=== PATIENT | female | born 1960 | race Caucasian/White ===

== ENCOUNTER 2017-02-04 18:40 | Emergency (ER) | payer OTHER, SELFPAY | END 2017-02-05 01:08 | disposition short-term general hospital (02) | PROVIDERS: Emergency Provider Emergency Medicine; Family Provider Internal Medicine Adolescent Medicine; Visit Provider Emergency Medicine | DX: F31.2 Bipolar disorder, current episode manic severe with psychotic features (principal); S16.1XXA Strain of muscle, fascia and tendon at neck level, initial encounter; S70.02XA Contusion of left hip, initial encounter; S46.912A Strain of unspecified muscle, fascia and tendon at shoulder and upper arm level, left arm, initial encounter; S39.012A Strain of muscle, fascia and tendon of lower back, initial encounter; Z79.899 Other long term (current) drug therapy; F41.8 Other specified anxiety disorders; W01.0XXA Fall on same level from slipping, tripping and stumbling without subsequent striking against object, initial encounter; Y92.019 Unspecified place in single-family (private) house as the place of occurrence of the external cause | CPT/HCPCS: 71010; 72100; 72125; 73030; 73502; 80053; 80305; 81001; 82550; 82553; 84439; 84443; 84484; 85025; 93005; 93041; 96372; 99285 ==

== ENCOUNTER → 2017-03-20 16:31 | Outpatient (CLI) | payer OTHER, SELFPAY ==
[2017-03-20 16:54] LABS: Basophils # 0.1 K/mm3 (0-0.2); Basophils % 0.7 % (0.1-2.0); Eosinophils # 0.2 K/mm3 (0.0-0.4); Eosinophils % 2.7 % (0.1-12.0); Hematocrit 41.1 % (37.0-47.0); Hemoglobin 13.4 g/dL (12.2-16.2); Lymphocytes # 3.3 K/mm3 (0.7-4.5); Lymphocytes % 38.2 K/mm3 (10-50); Mean Corpuscular HGB Conc 32.7 g/dL (31.8-35.4); Mean Corpuscular Hemoglobin 29.5 pg (27.0-31.2); Mean Corpuscular Volume 90.3 fl (81-99); Mean Platelet Volume 9.2 fl (7.4-10.4); Monocytes # 0.5 K/mm3 (0.1-1.0); Monocytes % 5.6 % (1.7-9.3); Neutrophils # 4.6 K/mm3 (1.8-7.8); Neutrophils % 52.8 % (37.0-80.0); Platelet Count 229 K/mm3 (142-424); Red Blood Count 4.55 M/mm3 (4.20-5.40); Red Cell Distribution Width 13.1 % (11.5-17.5); White Blood Count 8.7 K/mm3 (4.8-10.8)
[2017-03-20 18:21] LABS: Alanine Aminotransferase 22 U/L (12-78); Albumin/Globulin Ratio 1.3 (1.1-1.8); Alkaline Phosphatase 78 U/L (46-116); Anion Gap 4.8 mEq/L (5-15); Aspartate Amino Transferase 16 U/L (15-37); Blood Urea Nitrogen 23 mg/dL (7-18); Carbon Dioxide 26 mmol/L (21.0-32.0); Chloride 103 mmol/L (98-107); Chol/HDL Ratio 3.7 (1-3.5); Cholesterol 220 mg/dL (140-200); Creatinine,Serum 0.83 mg/dL (0.55-1.02); Estimated Glomerular Filt Rate 71 ml/min (>60); GFR (African American) 85 ML/MIN (>60); Globulin 3.1 gm/dl (1.3-3.2); Glucose 95 mg/dL (74-106); HDL Cholesterol 60 mg/dL (29-89); LDL Cholesterol 144 mg/dL (0-130); Potassium 3.8 mmoL/L (3.5-5.1); Sodium 130 mmol/L (136-145); Thyroid Stimulating Hormone 3.34 uIU/ml (0.358-3.740); Total Protein,Serum 7.1 gm/dL (6.4-8.2); Triglycerides 81 mg/dL (30-200); VLDL Cholesterol 16 mg/dL (0-40)
== END ==
PROVIDERS: PCP Internal Medicine Adolescent Medicine; Visit Provider Internal Medicine Adolescent Medicine
DX: R60.9 Edema, unspecified (principal); Z00.00 Encounter for general adult medical examination without abnormal findings
CPT/HCPCS: 36415; 80053; 80061; 84443; 85025

== ENCOUNTER → 2020-09-30 18:43 | Outpatient (CLI) | payer OTHER, SELFPAY ==
[2020-09-30 19:15] LABS: Basophils % 0.5 % (0.1-2.0); Eosinophils # 0.1 K/mm3 (0.0-0.4); Eosinophils % 1.4 % (0.1-12.0); Hematocrit 40.8 % (37.0-47.0); Hemoglobin 13.4 g/dL (12.2-16.2); Lymphocytes # 2.3 K/mm3 (0.7-4.5); Lymphocytes % 32.9 % (10-50); Mean Corpuscular HGB Conc 32.9 g/dL (31.8-35.4); Mean Corpuscular Hemoglobin 29.8 pg (27.0-31.2); Mean Corpuscular Volume 90.4 fl (81-99); Mean Platelet Volume 10.2 fl (7.4-10.4); Monocytes # 0.4 K/mm3 (0.1-1.0); Monocytes % 5.8 % (1.7-9.3); Neutrophils # 4.1 K/mm3 (1.8-7.8); Neutrophils % 59.4 % (37.0-80.0); Platelet Count 257 K/mm3 (142-424); Red Blood Count 4.52 M/mm3 (4.20-5.40); Red Cell Distribution Width 13.7 % (11.5-17.5)
[2020-09-30 19:40] LABS: Chloride 109 mmol/L (98-107); Sodium 142 mmol/L (136-145)
[2020-09-30 19:43] LABS: Alanine Aminotransferase 55 U/L (12-78); Albumin/Globulin Ratio 1.5 (1.1-1.8); Alkaline Phosphatase 112 U/L (38-126); Aspartate Amino Transferase 66 U/L (14-36); Bilirubin,Total 0.5 mg/dl (0.2-1.3); Blood Urea Nitrogen 10 mg/dl (7-17); Carbon Dioxide 28 mmol/L (22.0-30.0); Estimated Glomerular Filt Rate 85 ml/min (>60); GFR (African American) 103 ML/MIN (>60); Globulin 2.6 g/dL (1.3-3.2); Total Protein,Serum 6.6 g/dl (6.3-8.2)
[2020-09-30 19:44] LABS: Calcium 8.8 mg/dl (8.4-10.2); Chol/HDL Ratio 4.4 (1-3.5); Cholesterol 189 mg/dl (140-200); Glucose 99 mg/dl (74-100); HDL Cholesterol 43 mg/dl (40-60); Triglycerides 101 mg/dl (30-150); VLDL Cholesterol 20 mg/dL (0-40)
[2020-09-30 19:55] LABS: Direct LDL Cholesterol 116.16 mg/dL (100-129)
[2020-09-30 21:49] LABS: 25-OH Vitamin D, Total 41.1 ng/mL (30-100)
== END ==
PROVIDERS: Visit Provider Nurse Practitioner Family
DX: Z00.00 Encounter for general adult medical examination without abnormal findings (principal); M85.80 Other specified disorders of bone density and structure, unspecified site
CPT/HCPCS: 80053; 80061; 82306; 85025

== ENCOUNTER 2020-10-25 15:07 | Emergency (ER) | payer OTHER, SELFPAY ==
[2020-10-25 15:56] VITALS: BP 142/88; PULSE 57; RESP 18; TEMP 36.7; O2SAT 98; BMI 22.8
--- NOTE | 2020-10-25 16:07 | HMH.EDUTC ---
[facility] [place] Disposition Clinical Impression: Cellulitis of left elbow Disposition: Home, Self-Care Condition on Discharge: Good Instructions: DI for Cellulitis -- Adult Additional Instructions: Keep elevated. Follow up with Marcela/Dr Manzo Prescriptions: Sulfamethoxazole/Trimethoprim [Bactrim DS tablet] 1 each PO BID 10 Days #20 tab Transmission Status: Pending to [facility] # methylPREDNISolone [Medrol 4mg tab] 4 mg PO DIRECTED #21 tab Transmission Status: Pending to [facility] # Referrals: Omar Manzo MD [Primary Care Provider] - Time of Disposition: 16:22 Medical Decision Making - Terry Inquiry Pt receiving controlled substance: No Vital Signs: 10/25/20 15:56 Temperature 98.1 F Temperature Source Oral Pulse Rate [Left] 57 L Respiratory Rate 18 Blood Pressure [Right Arm] 142/88 H Blood Pressure Mean [Right Arm] 106 02 Sat by Pulse Oximetry 98 [facility] [place] HPI - General Stated complaint: possible boil on L elbow Time Seen by Provider: 10/25/20 16:08 Mode of Arrival: Ambulatory Source of Information: Patient Limitations: No Limitations Description of Symptoms (Recalled from Triage Doc. by RN): pt c/o L arm and elbow pain and swelling. HEENT Symptoms (Recalled from RN notes): No Resp Symptoms (Recalled from RN notes): No Skin Symptoms (Recalled from RN notes): No MS Symptoms (Recalled from RN notes): Yes (L arm pain) Functional Status (Recalled from RN notes): na - History of Present Illness Provider Complaint: Patient c/o left elbow pain. States that she has been on vacation. Was eating dinner 4-5 days ago, noticed a slight stinging sensation to her elbow, and when she looked in the mirror it had a small red spot. She doesn't know if she was bitten or what. Today she woke up and her left elbow was red, swollen and her entire left arm is aching. Motrin hasn't helped. Swelling has gone down a bit. No fever. Onset (ago): day(s) (5) Location: left, upper extremity Relieving factors: none Exacerbating factors: none Associated symptoms: denies other symptoms Treatments prior to arrival: NSAID - Related Data Previous Rx's Medication Instructions Recorded Sulfamethoxazole/Trimethoprim 1 each PO BID 10 Days #20 tab 10/25/20 [Bactrim DS tablet] methylPREDNISolone [Medrol 4mg 4 mg PO DIRECTED #21 tab 10/25/20 tab] - Worker's Comp Is this a Worker's Comp case?: No [facility] History - Hepatitis A Screen Drug use history?: No High risk sexual behaviors?: No History of sexually transmitted infection?: No Currently employed?: No Childcare worker?: No Do you have indoor plumbing?: Yes Do you have electricity?: Yes Attestation statement:: This patient has been screened for Hepatitis A risk factors. I have reviewed the patient's past medical history: Yes ROS Obtained: Yes All systems reviewed & no additional complaints - Musculoskeletal Musculoskeletal: Reports as per HPI, Reports joint pain, Reports joint swelling Physical Exam - General General appearance: alert, in no apparent distress - Head Head exam: atraumatic, normocephalic - Eye Eye exam: Present: PERRL - ENT ENT exam: Present: normal oropharynx - Neck Neck exam: Present: normal inspection - Chest Chest inspection: Present: normal inspection, symmetric chest wall rise - Respiratory Respiratory exam: Present: normal lung sounds bilaterally. Absent: respiratory distress - Cardiovascular Cardiovascular exam: Present: regular rate, normal rhythm - Expanded Upper Extremity Exam Left Elbow exam: Present: tenderness, swelling, erythema, effusion - Neurological Exam Neurological exam: Present: alert, oriented X3 - Psychiatric Psychiatric exam: Present: normal affect, normal mood - Skin Skin exam: Present: warm, dry
[2020-10-25 16:44] VITALS: BP 142/88; PULSE 57; RESP 19; TEMP 36.7
== END 2020-10-25 16:45 | disposition home or self-care (01) ==
PROVIDERS: Emergency Provider Physician Assistant; PCP Internal Medicine Adolescent Medicine
DX: L03.114 Cellulitis of left upper limb (principal)
CPT/HCPCS: 99202; G0463

== ENCOUNTER → 2020-11-04 08:09 | Outpatient (CLI) | payer OTHER, SELFPAY ==
--- NOTE | 2020-11-04 | US_ITS ---
PROCEDURE: US BREAST LT COMPLETE CLINICAL INDICATION: Cellulitis COMPARISON: US BL US BREAST-LT COMPLETE W/AXILLA from 06/23/2014 MG MM DIG SC MAMM UNILAT RT CAD from 11/04/2020 FINDINGS: General survey performed of the left breast as the patient could not tolerate a mammogram. 3 mm hypoechoic area at 12 o'clock and may represent a small cyst. No solid lesions apparent. Small nodes are present in the axilla. IMPRESSION: 3 mm cyst at 12 o'clock otherwise negative. BI-RADS category 0 incomplete. Recommend patient have the left mammogram when tolerable. Dictated by: Smith Farah MD 11/10/2020 08:37 Smith Farah MD in [place] 11/10/2020 08:37
--- NOTE | 2020-11-04 08:16 | XR_ITS ---
PROCEDURE: XR DEXA AXIAL SKELETON CLINICAL HISTORY: POST MENOPAUSAL COMPARISON: CR,DX BONE3 BONE DENSITOMETRY(HIP:LT SPINE from 03/24/2016 FINDINGS: The right hip BMD is 0.636 with a T-score of -1.9. The left hip BMD is 0.67 with a T-score of -1.5. The lumbar spine BMD is 0.892 with a T-score of -1.4. Previously the lowest density is in the left femoral neck with T-score of -1.3 IMPRESSION: This patient is considered osteopenic according to the World Health Organization criteria. Bone density is between 10 and 25 percent below young normal. Fracture risk is moderate. Treatment is advised. Based on these results a follow-up exam is recommended in 2 year. Dictated by: Smith Farah MD 11/04/2020 12:08 Smith Farah MD in [place] 11/04/2020 12:08
--- NOTE | 2020-11-04 08:17 | MM_ITS ---
PROCEDURE: MM DIG SC MAMM UNILAT RT CAD Digital Breast Tomosynthesis Included CLINICAL INDICATION: SCREENING COMPARISON: MG DMDB DIG MAMM-DX ROSENDO from 05/13/2013 MG DMSB DIG MAMM-SCREEN ROSENDO from 06/23/2014 MG DMSB DIG MAMM-SCREEN ROSENDO from 11/23/2015 TECHNIQUE: Standard CC and MLO images and 3D Tomosynthesis was obtained. R2 CAD reviewed. FINDINGS: Right-side only performed. Patient has cellulitis in the left breast. Technologist advise patient to perhaps weight and do both sides at the same time however patient desired to have the right breast performed today. The right breast is heterogeneously dense which may obscure small masses. No suspicious appearing mass, malignant-appearing microcalcification, architectural distortion, or skin thickening. No significant change IMPRESSION: No change with no evidence of malignancy BI-RAD Category: 1 Negative FOLLOW-UP: Suggest patient have the left screening mammogram as soon as possible. Annual follow-up suggested of the right breast. (A letter has been sent to the patient regarding results of the study.) Dictated by: Smith Farah MD 11/06/2020 09:34 Smith Farah MD in [place] 11/06/2020 09:34
== END ==
PROVIDERS: PCP Internal Medicine Adolescent Medicine; Visit Provider Nurse Practitioner Family
DX: Z12.31 Encounter for screening mammogram for malignant neoplasm of breast (principal); Z13.820 Encounter for screening for osteoporosis; Z78.0 Asymptomatic menopausal state; N60.02 Solitary cyst of left breast; N64.4 Mastodynia
CPT/HCPCS: 76641; 77063; 77067; 77080

== ENCOUNTER → 2020-12-28 07:35 | Outpatient (CLI) | payer OTHER, SELFPAY ==
--- NOTE | 2020-12-28 07:38 | CT_ITS ---
PROCEDURE: CT LUNG SCREENING CLINICAL INDICATION: H/O NICOTINE DEPENDENCE COMPARISON: No exams were available for comparison TECHNIQUE: The exam was performed on a GE Light Speed [address] scanner using 2.90 mGy CTDI. A low dose helical CT CHEST was performed on a multi-detector scanner. All CT scans at the facility use one or more dose reduction, viz: automated exposure control, ma/kV adjustment per patient size (including targeted exams where dose is matched to indication, i.e. head), or iterative reconstruction technique. The LDCT was performed in a facility that meets the criteria for the screening program. Data regarding this exam was submitted to ACR which is an approved registry. The order for this exam indicates that it came as a result of a lung cancer screening counseling shard decision-making visit that included all the elements required of such a visit including smoking cessation. The radiologist interpreting this exam meets the CMS criteria for the LDCT lung cancer screening program. The exam is reported using the Lung-RADS classification scale and reported to the ACR registry. NOTE: This study was performed for the specific purposes of lung cancer screening and is not an alternative to diagnostic chest CT. RADIATION DOSE: CTDI vol(CT dose Index-volume) = 2.90mG DLP (Dose Length Product) = 108.64 mGcm FINDINGS: COPD changes with scattered areas of scarring. 4 mm nodule left apex anteriorly. Calcified nodule left upper lobe anterior. 3 mm nodule right upper lobe subpleural region. 2 mm nodule right subpleural laterally. No suspicious nodules. Surgical clips in the left breast. Incompletely imaged 4 cm cystic lesion of the left kidney OTHER FINDINGS: No other pertinent findings evident. IMPRESSION: Lung-RADS Category 2 Benign Appearance or Behavior Follow-up: Continue annual screening with LDCT in 12 months Suggest ultrasound of the left kidney to confirm cystic nature of the incompletely imaged cystic appearing lesion of the left kidney Dictated by: Smith Farah MD 01/02/2021 07:40 Smith Farah MD in [place] 01/02/2021 07:40
--- NOTE | 2020-12-28 08:30 | MM_ITS ---
PROCEDURE INFORMATION: Exam: MG Bilateral Screening 3D Mammography Exam date and time: 12/28/2020 8:30 AM Age: 60 years old Clinical indication: Encounter for screening mammogram for malignant neoplasm of breast TECHNIQUE: Imaging protocol: Bilateral screening tomosynthesis and 2D mammography including computer-aided detection (CAD) when performed. COMPARISON: 1. MG DMSB DIG MAMM-SCREEN ROSENDO 11/23/2015 4:42 PM 2. MG DMSB DIG MAMM-SCREEN ROSENDO 06/23/2014 1:16 PM FINDINGS: MAMMOGRAPHY: Breast composition: The breast tissue is composed of scattered areas of fibroglandular density. Mass: None. Architectural distortion: No significant postoperative distortion in the left breast Calcifications: No suspicious calcifications. Asymmetric density: None. Skin thickening: None. Axillary adenopathy: None. IMPRESSION: No mammographic evidence of malignancy. Annual bilateral screening is recommended unless otherwise clinically indicated. ASSESSMENT: BI-RADS Category 1: Negative
[2020-12-28 10:36] LABS: Basophils # 0.1 K/mm3 (0-0.2); Basophils % 1.1 % (0.1-2.0); Eosinophils # 0.1 K/mm3 (0.0-0.4); Eosinophils % 1.8 % (0.1-12.0); Hematocrit 40.9 % (37.0-47.0); Hemoglobin 13.7 g/dL (12.2-16.2); Lymphocytes # 2.6 K/mm3 (0.7-4.5); Lymphocytes % 39.6 % (10-50); Mean Corpuscular HGB Conc 33.6 g/dL (31.8-35.4); Mean Corpuscular Hemoglobin 30.9 pg (27.0-31.2); Mean Platelet Volume 8.9 fl (7.4-10.4); Monocytes # 0.3 K/mm3 (0.1-1.0); Monocytes % 4.4 % (1.7-9.3); Neutrophils # 3.5 K/mm3 (1.8-7.8); Platelet Count 312 K/mm3 (142-424); Red Blood Count 4.45 M/mm3 (4.20-5.40); Red Cell Distribution Width 13.3 % (11.5-17.5); White Blood Count 6.6 K/mm3 (4.8-10.8)
[2020-12-28 11:40] LABS: Alanine Aminotransferase 17 U/L (12-78); Albumin Level 4.2 g/dl (3.5-5.0); Albumin/Globulin Ratio 1.6 (1.1-1.8); Alkaline Phosphatase 80 U/L (38-126); Anion Gap 10.4 mEq/L (5-15); Aspartate Amino Transferase 28 U/L (14-36); Bilirubin,Total 0.7 mg/dl (0.2-1.3); Blood Urea Nitrogen 13 mg/dl (7-17); Calcium 9.4 mg/dl (8.4-10.2); Carbon Dioxide 30 mmol/L (22.0-30.0); Chloride 104 mmol/L (98-107); Estimated Glomerular Filt Rate 101 ml/min (>60); GFR (African American) 123 ML/MIN (>60); Globulin 2.6 g/dL (1.3-3.2); Glucose 94 mg/dl (74-100); Potassium 4.4 mmoL/L (3.5-5.1); Sodium 140 mmol/L (136-145); Total Protein,Serum 6.8 g/dl (6.3-8.2)
[2020-12-28 11:53] LABS: 25-OH Vitamin D, Total 50.1 ng/mL (30-100)
== END ==
PROVIDERS: PCP Internal Medicine Adolescent Medicine; Visit Provider Nurse Practitioner Family
DX: Z87.891 Personal history of nicotine dependence (principal); Z12.2 Encounter for screening for malignant neoplasm of respiratory organs; Z12.31 Encounter for screening mammogram for malignant neoplasm of breast; R79.89 Other specified abnormal findings of blood chemistry; M85.89 Other specified disorders of bone density and structure, multiple sites
CPT/HCPCS: 36415; 71271; 77063; 77067; 80053; 82306; 85025

== ENCOUNTER → 2021-01-22 14:03 | Outpatient (CLI) | payer OTHER, SELFPAY ==
--- NOTE | 2021-01-22 14:05 | US_ITS ---
PROCEDURE: US KIDNEY CLINICAL INDICATION: ABN FINDINGS ON IMAGING TEST The COMPARISON: CT CT LUNG SCREENING from 12/28/2020 FINDINGS: The right kidney is [id number]. No hydronephrosis, cortical thinning, or solid renal mass or perinephric fluid collection is evident. 6 mm cyst in the upper pole of the right kidney The left kidney is [id number]. No hydronephrosis, cortical thinning, or solid renal mass or perinephric fluid collection is evident. 5 cm benign-appearing cyst in the upper pole of the left kidney corresponding to the CT abnormality of 12/28/2020. IMPRESSION: 5 cm benign-appearing left renal cyst and 6 mm benign-appearing right renal cyst Dictated by: Smith Farah MD 01/22/2021 16:40 Smith Farah MD in [place] 01/22/2021 16:40
== END ==
PROVIDERS: PCP Internal Medicine Adolescent Medicine; Visit Provider Nurse Practitioner Family
DX: R93.89 Abnormal findings on diagnostic imaging of other specified body structures (principal)
CPT/HCPCS: 76770

== ENCOUNTER 2021-03-03 09:05 | Emergency (ER) | payer OTHER, SELFPAY ==
--- NOTE | 2021-03-03 09:17 | XR_ITS ---
FINAL REPORT CLINICAL HISTORY: fall, pain and swelling FINDINGS: 3 views of the right hand were obtained. There are mild degenerative changes. There is chronic erosion of the tip of the 2nd distal phalanx. There is a probable nondisplaced fracture of the proximal aspect of the 4th metacarpal. There is dorsal hand soft tissue swelling. IMPRESSION: Probable nondisplaced fracture of the proximal 4th metacarpal. Recommend follow-up radiographs. Reviewed, Interpreted and Dictated by Chano Rendon III, MD Transcribed by Anand Elder Authenticated by Chano Rendon III, MD on 03/03/2021 10:22:10 AM [facility]
--- NOTE | 2021-03-03 09:17 | XR_ITS ---
FINAL REPORT CLINICAL HISTORY: fall, pain and swelling FINDINGS: RIGHT WRIST Three views demonstrate irregularity of the proximal fourth metacarpal worrisome for a nondisplaced fracture. Mild degenerative changes are present. There is dorsal hand and wrist soft tissue swelling. No other fracture or dislocation. IMPRESSION: Fracture as above. Reviewed, Interpreted and Dictated by Chano Rendon III, MD Transcribed by Maribell Duarte Authenticated by Chano Rendon III, MD on 03/03/2021 11:05:26 AM [facility]
[2021-03-03 09:41] VITALS: BP 115/58; PULSE 56; RESP 18; TEMP 37.1; O2SAT 100; BMI 25.0
--- NOTE | 2021-03-03 11:38 | HMH.EDUTC ---
[facility] [place] Disposition Clinical Impression: Right hand fracture Qualifiers: Encounter type: initial encounter Fracture type: closed Qualified Code(s): S62.91XA - Unspecified fracture of right wrist and hand, initial encounter for closed fracture Disposition: Home, Self-Care Condition on Discharge: Good Instructions: DI for a Hand Fracture, Hand Fracture Additional Instructions: Rest the extremity, apply ice for 15 minutes as tolerated three or four times per day, Elevate the extremity as tolerated while you are resting. Take ibuprofen or tylenol for pain Follow up with Dr. Rios (orthopedics). I put in a referral but you need to call his office and schedule an appointment. You have a follow up appointment with Dr. Rios (orthopedics) on March 09 at 10:00 am in his office. His office is here in the hospital. Please call and verify the date and time on that appointment. Make sure you follow up with him. Follow up with your regular doctor. GO TO THE ER FOR ANY WORSENING SYMPTOMS Referrals: Omar Manzo MD [Primary Care Provider] - Arsen Rios MD [Staff Physician] - 03/09/21 10:00 am Time of Disposition: 11:43 Medical Decision Making - Medical Records Medical records reviewed: No: I reviewed the patient's medical records. - Terry Inquiry Pt receiving controlled substance: No Vital Signs: 03/03/21 09:41 03/03/21 12:11 Temperature 98.7 F 98.7 F Temperature Source Oral Pulse Rate 56 L Pulse Rate [Left] 56 L Respiratory Rate 18 18 Blood Pressure 115/58 L Blood Pressure [Right Arm] 115/58 L Blood Pressure Mean [Right Arm] 77 02 Sat by Pulse Oximetry 100 - Radiology Data #1 Image(s): Hand Image Reviewed: Yes I reviewed the patient's radiology image, Yes I have reviewed radiologist's interpretation Preliminary Findings: Abnormal FINAL REPORT CLINICAL HISTORY: fall, pain and swelling FINDINGS: 3 views of the right hand were obtained. There are mild degenerative changes. There is chronic erosion of the tip of the 2nd distal phalanx. There is a probable nondisplaced fracture of the proximal aspect of the 4th metacarpal. There is dorsal hand soft tissue swelling. IMPRESSION: Probable nondisplaced fracture of the proximal 4th metacarpal. Recommend follow-up radiographs. Reviewed, Interpreted and Dictated by Chano Rendon III, MD Transcribed by Anand Elder Authenticated by Chano Rendon III, MD on 03/03/2021 10:22:10 AM [facility] HPI - General Stated complaint: AO 0118 fall, right wisdom pain Time Seen by Provider: 03/03/21 09:41 Mode of Arrival: Ambulatory Source of Information: Patient Limitations: No Limitations Description of Symptoms (Recalled from Triage Doc. by RN): pt states she fell off a ladder yesterday and is now having R hand/wrist pain, swelling and bruising. HEENT Symptoms (Recalled from RN notes): No Resp Symptoms (Recalled from RN notes): No Skin Symptoms (Recalled from RN notes): No MS Symptoms (Recalled from RN notes): Yes (R hand/wrist pain) Functional Status (Recalled from RN notes): wnl - History of Present Illness Provider Complaint: She fell off of a ladder at home while cleaning yesterday. She came down on her right hand and wrist. Since then she has had right hand and wrist pain. - Related Data Home Medications Medication Instructions Recorded Confirmed alendronate 35 mg tablet 35 mg PO WEEKLY 02/23/21 02/23/21 aripiprazole 10 mg tablet 10 mg PO DAILY 02/23/21 02/23/21 Previous Rx's Medication Instructions Recorded Sulfamethoxazole/Trimethoprim 1 each PO BID 10 Days #20 tab 10/25/20 [Bactrim DS tablet] methylPREDNISolone [Medrol 4mg 4 mg PO DIRECTED #21 tab 10/25/20 tab] Allergies Allergy/AdvReac Type Severity Reaction Status Date / Time No Known Allergies Allergy Verified 02/23/21 10:15 - Worker's Comp Is this a Worker's Comp case?: No [facility] History - Hepatitis
[2021-03-03 12:11] VITALS: BP 115/58; PULSE 56; RESP 18; TEMP 37.1
== END 2021-03-03 12:12 | disposition home or self-care (01) ==
PROVIDERS: Emergency Provider Nurse Practitioner Family; PCP Internal Medicine Adolescent Medicine
DX: S62.304A Unspecified fracture of fourth metacarpal bone, right hand, initial encounter for closed fracture (principal); W11.XXXA Fall on and from ladder, initial encounter; Y92.019 Unspecified place in single-family (private) house as the place of occurrence of the external cause; F41.9 Anxiety disorder, unspecified; I10 Essential (primary) hypertension; E78.5 Hyperlipidemia, unspecified
CPT/HCPCS: 29125; 73110; 73130; 99202; G0463

== ENCOUNTER → 2021-03-05 15:39 | Outpatient (CLI) | payer OTHER, SELFPAY ==
--- NOTE | 2021-03-05 15:46 | XR_ITS ---
FINAL REPORT CLINICAL HISTORY: LEFT POSTERIOR WRIST PAIN FINDINGS: LEFT WRIST 3 views were obtained. There is no acute fracture or dislocation. There are mild degenerative changes along the radial aspect of the wrist. There are moderate degenerative changes of the 1st CMC joint. There is no soft tissue abnormality. IMPRESSION: Degenerative changes with no acute bony abnormality. Reviewed, Interpreted and Dictated by Chano Rendon III, MD Transcribed by Liz Coronado Authenticated by Chano Rendon III, MD on 03/05/2021 04:17:44 PM [facility]
--- NOTE | 2021-03-05 15:46 | XR_ITS ---
FINAL REPORT CLINICAL HISTORY: LEFT ANTERIOR ARM PAIN FINDINGS: LEFT FOREARM 2 views of the left forearm were obtained. There is no acute fracture or dislocation. There are mild degenerative changes of the elbow. There are no soft tissue abnormalities. IMPRESSION: No acute bony abnormality. Reviewed, Interpreted and Dictated by Chano Rendon III, MD Transcribed by Liz Coronado Authenticated by Chano Rendon III, MD on 03/05/2021 04:17:47 PM [facility]
--- NOTE | 2021-03-05 15:46 | XR_ITS ---
FINAL REPORT CLINICAL HISTORY: LEFT ANTERIOR SHOULDER PAIN FINDINGS: LEFT HUMERUS Two views were obtained. There is no acute fracture or dislocation. There are mild degenerative changes of the shoulder. There is no soft tissue abnormality. IMPRESSION: No acute bony abnormality. Reviewed, Interpreted and Dictated by Chano Rendon III, MD Transcribed by Liz Coronado Authenticated by Chaon Rendon III, MD on 03/05/2021 04:17:43 PM [facility]
--- NOTE | 2021-03-05 15:46 | XR_ITS ---
FINAL REPORT CLINICAL HISTORY: LEFT POSTERIOR WRIST/HAND PAIN FINDINGS: LEFT HAND 3 views were obtained. There is no acute fracture or dislocation. There are mild degenerative changes along the radial aspect of the wrist. There are moderate degenerative changes of the 1st CMC joint. There is no soft tissue abnormality. IMPRESSION: Degenerative change with no acute bony abnormality. Reviewed, Interpreted and Dictated by Chano Rendon III, MD Transcribed by Liz Coronado Authenticated by Chano Rendon III, MD on 03/05/2021 04:17:46 PM [facility]
== END ==
PROVIDERS: PCP Internal Medicine Adolescent Medicine; Visit Provider Nurse Practitioner Family
DX: M79.602 Pain in left arm (principal); M25.532 Pain in left wrist; M25.512 Pain in left shoulder
CPT/HCPCS: 73060; 73090; 73110; 73130

== ENCOUNTER 2021-03-09 11:01 | Outpatient (RCR) | payer OTHER, SELFPAY | END 2021-03-09 12:00 | disposition home or self-care (01) | LOC: OT 11:01 | PROVIDERS: Visit Provider Orthopaedic Surgery | DX: S62.344D Nondisplaced fracture of base of fourth metacarpal bone, right hand, subsequent encounter for fracture with routine healing (principal); S69.91XD Unspecified injury of right wrist, hand and finger(s), subsequent encounter | CPT/HCPCS: 97763 ==

== ENCOUNTER → 2021-03-23 08:35 | Outpatient (CLI) | payer OTHER, SELFPAY ==
--- NOTE | 2021-03-23 | CA_ITS ---
APPROVED REPORT Exam: Exercise Treadmill Technologist: Una Chang, Ht: 5 ft 6 in Wt: 152 lbs BSA: 1.78 m2 HR: 63 bpm BP: 128/85 mmHg Medical History Medications: LaMotrigine,,,,, Alendronate,,,,, Stress Test Details Test: Jack HR Resting HR: 79 bpm Max Heart Rate (APMHR): 158.975948 bpm Max HR Achieved: 133 bpm Target HR (85% APMHR): 134.747101 bpm % of APMHR: 84.18 Recovery HR: 77 bpm BP Resting BP: 122/85 mmHg Max BP: 164/82 mmHg Recovery BP: 138.0/85.0 mmHg ECG Resting ECG: NSR, normal Clinical Exercise duration: 06:18 min Highest Stage Achieved: Exercise capacity: 7.0 METs Stress ECG Conclusion Exercised 6:18 on Jack Protocol Max HR: 133 % of PM: 84% Max BP: 164/82 METs: 7.0 Test stopped due to: SOA, chest discomfort Symptoms: L upper chest pressure and L arm pain. Arrhythmias/Ectopy: Rare PVC. ST-T Changes: 0.5mm upsloping ST depression laterally. Conclusion: Sxs suggesting exercising induced angina. Within normal stress EKGs. GXT only (no imaging) Test Summary REST . . . . . . . Sitting REST 06:33 0.0 0.0 79 . 122/ 85 . . Stage 1 01:00 10.0 1.7 92 . . . . Stage 1 02:00 10.0 1.7 103 . . . . Stage 1 03:00 10.0 1.7 102 . 142/ 80 . . Stage 2 01:00 12.0 2.5 112 . . . . Stage 2 02:00 12.0 2.5 123 . . . . Stage 2 03:00 12.0 2.5 127 . 164/ 82 . . Stage 3 00:18 14.0 3.4 132 . . . Stop exercise at 06:18 RECOVERY 01:00 0.0 0.0 94 . . . . RECOVERY 02:00 0.0 0.0 84 . 154/ 78 . . RECOVERY 03:00 0.0 0.0 76 . 154/ 78 . . RECOVERY 04:00 0.0 0.0 74 . 147/ 87 . . RECOVERY 05:00 0.0 0.0 77 . 138/ 85 . . RECOVERY 05:50 0.0 0.0 79 . 138/ 85 . . Electronically signed by : Omar Manzo MD 03/23/2021 17:46:21
--- NOTE | 2021-03-23 09:49 | XR_ITS ---
FINAL REPORT CLINICAL HISTORY: Rt hand fracture COMPARISON: March 03, 2021 FINDINGS: 3 views of the right hand were obtained. There is persistent mild irregularity of the proximal aspect of the 4th metacarpal, unchanged. There are mild degenerative changes. There is no soft tissue abnormality. IMPRESSION: Persistent mild irregularity of the proximal 4th metacarpal. Reviewed, Interpreted and Dictated by Chano Rendon III, MD Transcribed by Anand Elder Authenticated by Chano Rendon III, MD on 03/23/2021 11:32:33 AM [facility]
--- NOTE | 2021-03-23 09:49 | XR_ITS ---
FINAL REPORT CLINICAL HISTORY: Rt hand fracture COMPARISON: March 03, 2021 FINDINGS: 3 views of the right wrist were obtained. There is no acute fracture or dislocation. The joint spaces demonstrate mild degenerative change. There is no soft tissue abnormality. IMPRESSION: No acute abnormality. Reviewed, Interpreted and Dictated by Chano Rendon III, MD Transcribed by Anand Elder Authenticated by Chano Rendon III, MD on 03/23/2021 11:32:29 AM [facility]
== END ==
PROVIDERS: PCP Internal Medicine Adolescent Medicine; Visit Provider Nurse Practitioner Family
DX: R07.9 Chest pain, unspecified (principal); S62.91XA Unspecified fracture of right hand, initial encounter for closed fracture
CPT/HCPCS: 73110; 73130; 93017

== ENCOUNTER → 2021-04-07 08:31 | Outpatient (CLI) | payer OTHER, SELFPAY ==
--- NOTE | 2021-04-07 08:36 | US_ITS ---
FINAL REPORT CLINICAL HISTORY: RUQ PAIN,TENDERNESS FINDINGS: RIGHT UPPER QUADRANT ULTRASOUND: Ultrasound images of right upper quadrant were obtained. Limited images of the pancreas are obscured by bowel gas. The liver parenchyma is normal echogenicity. The gallbladder is well-visualized and the wall appears normal. There are no gallstones. The common duct measures 5 mm. The right kidney measures 11.5 cm. IMPRESSION: Normal right upper quadrant ultrasound. Reviewed, Interpreted and Dictated by Epi Rosen MD Transcribed by Maribell Duarte Authenticated by Epi Rosen MD on 04/07/2021 10:51:41 AM [facility]
== END ==
PROVIDERS: PCP Internal Medicine Adolescent Medicine; Visit Provider Nurse Practitioner Family
DX: R10.11 Right upper quadrant pain (principal); R10.811 Right upper quadrant abdominal tenderness
CPT/HCPCS: 76705

== ENCOUNTER → 2021-06-28 13:59 | Outpatient (CLI) | payer OTHER, SELFPAY ==
[2021-06-28 15:20] LABS: Blood Urea Nitrogen 17 mg/dl (7-17); Estimated Glomerular Filt Rate 63 ml/min (>60); GFR (African American) 77 ML/MIN (>60)
== END ==
PROVIDERS: Visit Provider Nurse Practitioner Family
DX: R10.84 Generalized abdominal pain (principal)
CPT/HCPCS: 36415; 82565; 84520

== ENCOUNTER → 2021-06-29 08:45 | Outpatient (CLI) | payer OTHER, SELFPAY ==
--- NOTE | 2021-06-29 08:49 | CT_ITS ---
FINAL REPORT TECHNIQUE: Postcontrast axial images through the abdomen and pelvis were performed. Oral contrast was given. This study was performed with techniques to keep radiation doses as low as reasonably achievable, (ALARA). Individualized dose reduction techniques using automated exposure control or adjustment of mA and/or kV according to the patient's size were employed. CLINICAL HISTORY: ABD PAIN,N/V,DYSPEPSIA FINDINGS: Abdomen: The lung bases are clear. The liver is normal in size and attenuation. There is mild gallbladder wall thickening which is nonspecific. The spleen is unremarkable. The adrenals are normal. The pancreas is unremarkable. There is a 4.3 cm left renal cyst. There is a less than 1 cm right renal cyst. No follow-up is required. The aorta is normal in caliber. No free fluid or adenopathy is identified. No findings for mechanical bowel obstruction are identified. Pelvis: The appendix is not identified. The patient is status post hysterectomy. There is descending and sigmoid diverticulosis without evidence of diverticulitis. There is an umbilical hernia containing fat. The urinary bladder is unremarkable. No free fluid, free air, abscess or adenopathy is identified. IMPRESSION: No acute process identified. Diverticulosis without evidence of diverticulitis. Reviewed, Interpreted and Dictated by Chano Rendon III, MD Transcribed by Maribell Duarte Authenticated by Chano Rendon III, MD on 06/29/2021 10:26:54 AM [facility]
== END ==
PROVIDERS: PCP Internal Medicine Adolescent Medicine; Visit Provider Nurse Practitioner Family
DX: R10.84 Generalized abdominal pain (principal); R11.2 Nausea with vomiting, unspecified; R10.13 Epigastric pain
CPT/HCPCS: 74177; Q9967

== ENCOUNTER 2024-04-01 11:25 | Outpatient (CLI) | payer MEDICARE, SELFPAY ==
--- NOTE | 2024-04-01 11:31 | XR_ITS ---
FINAL REPORT CLINICAL HISTORY: LEFT HAND PAIN FINDINGS: AP, oblique, and lateral views of the left hand were obtained. There is no prior exam for comparison. There is no acute fracture of the left hand. There is multijoint degenerative disease most pronounced at the first carpometacarpal joint. The soft tissues are normal. IMPRESSION: Degenerative changes with no acute osseous abnormality of the left hand. Reviewed, Interpreted and Dictated by Albertina Vital MD Transcribed by Dominique Vail Authenticated and [facility]
--- NOTE | 2024-04-01 11:31 | XR_ITS ---
FINAL REPORT CLINICAL HISTORY: LEFT KNEE PAIN FINDINGS: AP, lateral and oblique views of the left knee were obtained. There is no prior exam for comparison. There is no acute osseous abnormality of the left knee. There is tricompartmental degenerative joint disease. The soft tissues are normal. There is no joint effusion. IMPRESSION: Degenerative changes with no acute osseous abnormality of the left knee. Reviewed, Interpreted and Dictated by Albertina Vital MD Transcribed by Dominique Vail Authenticated and [facility]
== END 2024-04-01 23:59 | disposition home or self-care (01) ==
LOC: RAD 11:28
PROVIDERS: PCP Nurse Practitioner Family; Visit Provider Nurse Practitioner Family
DX: M79.642 Pain in left hand (principal); M25.562 Pain in left knee; G89.29 Other chronic pain
CPT/HCPCS: 73130; 73562

== ENCOUNTER 2024-04-18 08:14 | Outpatient (CLI) | payer MEDICARE, SELFPAY ==
--- NOTE | 2024-04-18 08:17 | MR_ITS ---
FINAL REPORT TECHNIQUE: Multiplanar MR, without and with gadolinium enhancement CLINICAL HISTORY: LFT SIDED WEAKNESS/ DAILY HEADACHES COMPARISON: None FINDINGS: MRI HEAD WITH AND WITHOUT CONTRAST: Diffusion sequences show no signal abnormality to indicate acute infarct. No mass, hemorrhage or edema is seen. Ventricles are normal. Major vascular flow voids are intact. Mild mucosal thickening is present in the ethmoid air cells. Following contrast administration, no mass or abnormal enhancement is seen. IMPRESSION: Unremarkable MRI of the head with and without contrast. Reviewed, Interpreted and Dictated by Kathryn Pastor MD Transcribed by Sima Robledo Authenticated and [facility]
[2024-04-18] MEDS: GADOTERIDOL INJ 20ML SYRINGE 18 ML IV (09:21)
[2024-04-18] MEDS: SODIUM CHLORIDE 0.9% 10ML SYR (RAD ONLY) 10 ML IV (09:21)
== END 2024-04-18 23:59 | disposition home or self-care (01) ==
LOC: RAD 08:15
PROVIDERS: PCP Nurse Practitioner Family; Visit Provider Nurse Practitioner Family
DX: R51.9 Headache, unspecified (principal); R53.1 Weakness
CPT/HCPCS: 70553; A9576

== ENCOUNTER 2024-09-25 11:02 | Outpatient (RCR) | payer MEDICARE, SELFPAY | END 2024-09-25 23:59 | disposition home or self-care (01) | LOC: PT.CARL 11:02 | PROVIDERS: PCP Nurse Practitioner Family; Visit Provider Internal Medicine | DX: M15.9 Polyosteoarthritis, unspecified (principal); M79.7 Fibromyalgia | CPT/HCPCS: 97163 ==